=== PATIENT | female | born 1990 | race Caucasian/White ===

== ENCOUNTER 2020-03-20 14:17 | Emergency (ER) | payer MEDICAID ==
[~2020-03-20] VITALS: Ht 172.7 cm; Wt 65.3 kg
[2020-03-20 15:02] VITALS: BP 104/58
--- NOTE | 2020-03-20 15:05 | NUR ---
URINE CUP HANDED TO PT FOR SAMPLE
[2020-03-20 15:33] LABS: BASOPHILS # (AUTO) 0.1 K/uL (0.00-0.22); BASOPHILS % (AUTO) 0.8 % (0.0-2.0); EOSINOPHILS # (AUTO) 0.2 K/uL (0-0.4); EOSINOPHILS % (AUTO) 2.6 % (0.0-4.0); HEMATOCRIT 36.6 % (36-48); HEMOGLOBIN 12.5 g/dL (12.0-16.0); LYMPHOCYTES % (AUTO) 26.8 % (20.5-51.1); MEAN CORPUSCULAR HEMOGLOBIN 32 pg (27-31); MEAN CORPUSCULAR HGB CONC 34 g/dL (33-37); MEAN CORPUSCULAR VOLUME 94.2 fL (80-94); MONOCYTES # (AUTO) 0.5 K/uL (0.8-1.0); NEUTROPHILS # (AUTO) 4.6 K/uL (1.8-7.7); NEUTROPHILS % (AUTO) 62.8 % (42.2-75.2); PLATELET COUNT (AUTO) 190 K/uL (140-450); RED BLOOD CELL COUNT(AUTO) 3.88 MIL/uL (4.20-5.40); RED CELL DISTRIBUTION WIDTH 13.6 % (11.6-13.7); WHITE BLOOD COUNT (AUTO) 7.4 K/uL (4.8-10.8)
[2020-03-20 15:34] LABS: APPEARANCE,URINE CLEAR (CLEAR); BILIRUBIN,URINE NEGATIVE (NEGATIVE); BLOOD, URINE NEGATIVE (NEGATIVE); COLOR,URINE YELLOW (YELLOW); LEUKOCYTE ESTERASE ,URINE NEGATIVE (NEGATIVE); NITRITE, URINE NEGATIVE (NEGATIVE); UGLUCOSE NEGATIVE (NEGATIVE)
[2020-03-20 15:57] LABS: ALBUMIN 3.4 g/dL (3.4-5.0); CARBON DIOXIDE 26.6 mmol/L (21-32); CREATININE 0.8 mg/dL (0.6-1.3); POTASSIUM 3.6 mmol/L (3.5-5.1); TOTAL BILIRUBIN 0.4 mg/dL (0.0-1.0)
--- NOTE | 2020-03-20 16:04 | NUR ---
29 Y/O FEMALE FROM HOME C/O LOWER ABD PAIN WITH VAGINAL BLEEDING SINCE YESTERDAY. PT STATES SMALL AMOUNT OF BRIGHT RED BLEEDING. STATES SHE IS APPROX 11 WKS . LMP 01/08/20. ABD SOFT, FLAT, NONTENDER TO PALP. BOWEL SOUNDS PRESENT. RR EVEN AND UNLABORED, DOES NOT APPEAR IN ANY DISTRESS. AWAKE AND ALERT. PLACED IN GOWN. VSS MEDHX: DENIES ALLERGIES: VILLA
[2020-03-20 16:53] VITALS: BP 104/58
== END 2020-03-20 16:54 | disposition home or self-care (01) ==
LOC: MED 14:17
DX: O20.0 Threatened abortion (principal); O26.891 Other specified pregnancy related conditions, first trimester; R10.9 Unspecified abdominal pain
CPT/HCPCS: 36415; 76801; 80053; 81003; 84702; 85025; 86900; 86901; 99284; Q0092

== ENCOUNTER 2020-03-24 10:21 | Emergency (ER) | payer SELFPAY ==
[~2020-03-24] VITALS: Ht 172.7 cm; Wt 65.3 kg
[2020-03-24 10:25] VITALS: BP 112/50
--- NOTE | 2020-03-24 10:34 | NUR ---
29 YO FEMALE HAD MISCARRIAGE ON FRIDAY (PT WAS AT 11 WEEKS), AND WAS SEEN HERE. PT WAS TOLD SHE WOULD EXPEL CONTENTS, BUT HAS NOT. PT WAS REFFERED BY OBGYN TO COME TO ER TO GET MEDICATION TO EXPEL CONTENTS. NO VAGINAL BLEEDING PRESENT AT THIS TIME NO PMH
--- NOTE | 2020-03-24 11:08 | NUR ---
Ultrasound at bedside
[2020-03-24 13:31] VITALS: BP 112/50
--- NOTE | 2020-03-24 13:31 | NUR ---
Patient discharged with v/s stable. Written and verbal after care instructions given and explained. Patient verbalized understanding. Ambulatory with steady gait. All questions addressed prior to discharge. Advised to follow up with PMD.
== END 2020-03-24 13:31 | disposition home or self-care (01) ==
LOC: MED 10:21
DX: O03.4 Incomplete spontaneous abortion without complication (principal)
CPT/HCPCS: 36415; 76817; 81025; 84702; 99284; Q0092

== ENCOUNTER 2020-04-12 12:20 | Outpatient (CLI) | payer MEDICAID, SELFPAY ==
[2020-04-20] MEDS ORDERED: METHYLERGONOVINE 0.2 MG/ML AMP ONE (12:12)
[2020-04-20] MEDS ORDERED: HYDROmorphone PFS 2 MG/ML SYR ONE (12:42)
== END 2020-04-12 23:59 | disposition home or self-care (01) ==
LOC: MLB 12:20 → EDSTATUS 04-20 12:00
PROVIDERS: ATTEND Obstetrics & Gynecology
DX: Z11.59 Encounter for screening for other viral diseases (principal)
CPT/HCPCS: J1170; J2210; U0003-CS

== ENCOUNTER 2020-04-20 07:51 | Day surgery (SDC) | payer MEDICAID, SELFPAY ==
[~2020-04-20] VITALS: Ht 175.3 cm; Wt 63.5 kg
[2020-04-20 07:55] VITALS: BP 105/66
--- NOTE | 2020-04-20 08:21 | NUR ---
LABS DRAWN, AT BEDSIDE FOR LAB TO PICKUP
--- NOTE | 2020-04-20 08:30 | NUR ---
29 Y/F PRESENTS TO ED FOR LOW PELVIC PAIN AND VAGINAL BLEEDING X3 DAYS. PT REPORTS SHE IS SCHEDULED FOR D&C TOMORROW, BUT STATES PAIN IS TOO SEVERE, 05/25. BLEEDING CONTAINS NO CLOTS OR CONTENTS. PT REPORTS CHANGING PAD Q 2-3 HOUR. PT STATES SHE IS FEELING WEAK. PT STATES SHE SPOKE WITH MD AND HE IS GOING TO MOVE HER SURGERY TO TODAY AT NOON, PT REPORTS NPO SINCE YESTERDAY. PT REPORTS SHE MISCARRIED AT 10 WEEKS ( NO HEART TONES). SHE WAS PRESCRIBED MISOPROSTOL TOOK 4 PILLS X 3 WEEKS AGO, THEN ANOTHER 4 X 2 WEEKS AGO. PT REPORTS VAGINAL BLEEDING X 3 DAY. X 1 LIVING X 1 MISCARRIAGE X 1 NKA
--- NOTE | 2020-04-20 08:40 | NUR ---
ERMD AT BEDSIDE.
[2020-04-20] MEDS ORDERED: NACL 0.9% 1,000 ML IV ONE (08:45)
[2020-04-20 08:53] LABS: BASOPHILS # (AUTO) 0.1 K/uL (0.00-0.22); BASOPHILS % (AUTO) 1.2 % (0.0-2.0); EOSINOPHILS # (AUTO) 0.2 K/uL (0-0.4); EOSINOPHILS % (AUTO) 2.9 % (0.0-4.0); HEMOGLOBIN 12.9 g/dL (12.0-16.0); LYMPHOCYTES # (AUTO) 2.6 K/uL (2.5-16.5); LYMPHOCYTES % (AUTO) 48.1 % (20.5-51.1); MEAN CORPUSCULAR HEMOGLOBIN 32 pg (27-31); MEAN CORPUSCULAR HGB CONC 34 g/dL (33-37); MEAN CORPUSCULAR VOLUME 95.3 fL (80-94); MONOCYTES # (AUTO) 0.4 K/uL (0.8-1.0); MONOCYTES % (AUTO) 7.2 % (1.7-9.3); NEUTROPHILS # (AUTO) 2.2 K/uL (1.8-7.7); NEUTROPHILS % (AUTO) 40.6 % (42.2-75.2); PLATELET COUNT (AUTO) 197 K/uL (140-450); RED BLOOD CELL COUNT(AUTO) 3.98 MIL/uL (4.20-5.40); RED CELL DISTRIBUTION WIDTH 13.3 % (11.6-13.7); WHITE BLOOD COUNT (AUTO) 5.5 K/uL (4.8-10.8)
--- NOTE | 2020-04-20 09:26 | NUR ---
TRANSFER OF CARE AT THIS TIME TO ALYSSA VENTURA
--- NOTE | 2020-04-20 10:07 | NUR ---
JOAN UNDERWOOD NOTIFIED OF DR CARBONE BEING LINKED TO PATIENT.
--- NOTE | 2020-04-20 10:48 | NUR ---
OR NURSES AT BEDSIDE TO SPEAK W/ PATIENT
--- NOTE | 2020-04-20 11:18 | NUR ---
PER JOHAN JACOBSEN DIRECTOR - ROOM [id number] AVAILABLE FOR PATIENT AFTER OR
--- NOTE | 2020-04-20 11:33 | NUR ---
COVID SWAB DONE ; TAKEN TO LAB PER JOHAN [facility] DIRECTOR
--- NOTE | 2020-04-20 11:40 | NUR ---
REPORT TO OR NURSE TARIK
--- NOTE | 2020-04-20 11:41 | NUR ---
TO OR VIA GURNEY WITH OR NURSES
[2020-04-20 11:42] VITALS: BP 98/52
[2020-04-20] MEDS ORDERED: fentaNYL citrate 0.05 MG/ML VIAL ONE (11:55)
[2020-04-20] MEDS ORDERED: PROPOFOL 200 MG/20 ML VIAL IV ONE (11:55)
[2020-04-20] MEDS ORDERED: METHYLERGONOVINE 0.2 MG/ML AMP ONE (11:55)
[2020-04-20] MEDS ORDERED: MIDAZOLAM 2 MG/2 ML VIAL ONE (11:55)
[2020-04-20] MEDS ORDERED: SEVOFLURANE 250 ML BTL INH ONE (11:55)
[2020-04-20] MEDS ORDERED: HYDROmorphone 1 MG/ML AMP IVP PRN (12:45)
== END 2020-04-20 14:30 | disposition home or self-care (01) ==
LOC: MED 07:51 → MFCC 10:14 → MTU 10:14 → UNDOADMOB 10:14 → MDS 10:14 → MTU 10:58 → UNDOADMOB 10:58 → MTU 13:35 → MFCC 13:35 → MDS 14:30 → UNDODISOB 14:30
PROVIDERS: ATTEND Obstetrics & Gynecology
DX: O03.4 Incomplete spontaneous abortion without complication (principal)
CPT/HCPCS: 36415; 59812; 85025; 86886; 86900; 86901; 88305; 96360; 99285; J2210; J2250; J2704; J3010; J7030; G0378